=== PATIENT | female | born 1955 | race Caucasian/White ===

== ENCOUNTER 2019-06-02 17:17 | Outpatient (CLI) | payer OTHER, MEDICAID | END 2019-06-02 17:18 | disposition critical access hospital (66) | LOC: EMS 17:17 → MERGE 17:17 → EMS 17:18 | PROVIDERS: ATTEND Surgery | DX: M54.5 Low back pain (principal) | CPT/HCPCS: A0425; A0429; A0999 ==

== ENCOUNTER 2019-06-02 17:34 | Emergency (ER) | payer MEDICAID, OTHER ==
[2019-06-02] MEDS ORDERED: MELOXICAM 7.5 MG TABLET PO STA (18:09)
--- NOTE | 2019-06-02 18:12 | ED Physician Documentation ---
PD HPI BACK PAIN - Stated complaint Stated Complaint: BACK PAIN - Chief complaint Chief Complaint: Back Pain - History obtained from History obtained from: Patient, EMS - History of Present Illness Timing - onset: How many days ago (2) Timing - duration: Days (2) Timing - details: Gradual onset Pain level max: 8 Pain level now: 8 Location: Lower, Left Quality: Pain, Spasm, Similar to prior episodes Associated symptoms: No: Fever, Weakness, Numbness, Incontinent of urine, Unable to urinate, Hematuria, Incontinent of stool Improves with: Rest Worsened by: Movement Contributing factors: Other (Started after gardening on ) Similar symptoms before: Has not had sx before (Has had low back pain and difficulty with the disks in her back for the last 30 years. Normally sees her chiropractor but he was unavailable. She has not taken anything for pain at home.) Recently seen: Not recently seen Review of Systems Constitutional: denies: Fever, Chills Throat: denies: Sore throat Cardiac: denies: Chest pain / pressure Respiratory: denies: Cough GI: denies: Nausea, Vomiting : denies: Dysuria, Frequency, Hesitancy, Incontinent Skin: denies: Rash Musculoskeletal: denies: Neck pain, Back pain Neurologic: denies: Headache PD PAST MEDICAL HISTORY - Past Medical History Past Medical History: Yes Endocrine/Autoimmune: HyPOthyroidism - Past Surgical History Past Surgical History: Yes /[employer]: section - Present Medications Home Medications: Ambulatory Orders Medication Instructions Recorded Confirmed Cyclobenzaprine [Flexeril] 10 mg PO TID PRN #20 tablet 06/02/19 Ibuprofen [Motrin] 800 mg PO Q8H PRN #30 tablet 06/02/19 Oxycodone HCl/Acetaminophen 1 - 2 each PO Q6H PRN #14 tablet 06/02/19 [Percocet 5-325 mg Tablet] predniSONE [Deltasone] 10 mg PO [id number] #42 tab 06/02/19 - Allergies Allergies/Adverse Reactions: Allergies Allergy/AdvReac Type Severity Reaction Status Date / Time No Known Drug Allergies Allergy Verified 06/02/19 17:39 - Social History Does the pt smoke?: No Smoking Status: Never smoker Does the pt drink ETOH?: No Does the pt have substance abuse?: No - Immunizations Immunizations are current?: No - POLST Patient has POLST: No PD ED PE NORMAL - Vitals Vital signs reviewed: Yes - General General: Alert and oriented X 3, No acute distress, Well developed/nourished - HEENT HEENT: Moist mucous membranes - Neck Neck: Supple, no meningeal sign - Cardiac Cardiac: RRR, Strong equal pulses - Respiratory Respiratory: No respiratory distress, Clear bilaterally - Abdomen Abdomen: Soft, Non tender, Non distended - Back Back: No spinal TTP, Other (no midline TTP, paraspinal spasm B.) - Derm Derm: Warm and dry - Extremities Extremities: No calf tenderness / cord - Neuro Neuro: Alert and oriented X 3, No motor deficit, No sensory deficit, Other (Normal bilateral lower extremity patellar and ankle jerk reflexes. Normal great toe extension bilaterally. no saddle anesthesia) - Psych Psych: Normal mood, Normal affect Results - Vitals Vitals: Vital Signs - 24 hr 06/02/19 06/02/19 06/02/19 17:35 20:10 21:49 Temperature 36.7 C 36.7 C Heart Rate 61 51 L 47 L Respiratory 18 18 16 Rate Blood Pressure 105/66 139/79 H 128/65 O2 Saturation 100 100 100 Oxygen O2 Source Room air - Rads (name of study) Lumbar xray Radiology: Prelim report reviewed, EMP read contemporaneously, See rad report (normal) PD MEDICAL DECISION MAKING - ED course Complexity details: reviewed results, re-evaluated patient, considered differential (No cauda equina, no spinal epidural abscess, no fracture, no aortic dissection or evidence of aneursym rupture), d/w patient ED course: 63-year-old female with back spasm. This been an ongoing issue for the past 30 years intermittently. She initially refused all pain medication. She then acquiesced to an anti-inflammatory. She then agreed to a muscle relaxant and a stronger pain medication. She refused all IV or IM medications. Her movement is improved, though she is still having spasming. She would like to go home at this time. Her family and friends want her admitted to the hospital, but there is no criteria for admission at this time. The patient is able to ambulate with minor assistance. She states that she has been sleeping on the hard floor for the past 30 years because otherwise her back hurts in a normal bed. She states that she is safe at home. Patient counseled regarding signs and symptoms for which I believe and urgent re-evaluation would be necessary. Patient with good understanding of and agreement to plan and is comfortable going home at this time This document was made in part using voice recognition software. While efforts are made to proofread this document, sound alike and grammatical errors may occur. Departure - Departure Disposition: 01 Home, Self Care Clinical Impression: Back muscle spasm Condition: Good Instructions: ED Spasm Back No Trauma, ED Sciatica Follow-Up: Thor Rivers MD [Primary Care Provider] - Within 1 week Prescriptions: Cyclobenzaprine [Flexeril] 10 mg PO TID PRN #20 tablet PRN Reason: Spasms Ibuprofen [Motrin] 800 mg PO Q8H PRN #30 tablet PRN Reason: PAIN &/OR FEVER Oxycodone HCl/Acetaminophen [Percocet 5-325 mg Tablet] 1 - 2 each PO Q6H PRN #14 tablet PRN Reason: pain predniSONE [Deltasone] 10 mg PO [id number] #42 tab Comments: Use of medications as prescribed. Return if you worsen. Follow-up with your doctor for further care. Continue gentle stretching at home. Heating pads will help as well. Do not drink alcohol or drive while on narcotic pain medicine. Note that many narcotic pain relievers also contain tylenol/acetaminophen. Please ensure that your total dose of acetaminophen from all sources does not exceed 3 grams (3000mg) per day. You may constipated on this medication, take a stool softener such as "Colace" twice a day while you are on it. Also recommend a [id number]-[id number] laxative such as senna or MiraLAX any day that you do not have a bowel movement. If you received narcotic pain medication in the emergency department, do not drive or operate machinery for the next 24 hours. Discharge Date/Time: 06/02/19 22:20
--- NOTE | 2019-06-02 18:49 | XRAY Report ---
Reason: back pain Procedure Date: 06/02/2019 Accession Number: [id number] / [id number] Procedure: XR - Lumbar Spine 2 View CPT Code: FULL RESULT: EXAM: LUMBOSACRAL SPINE RADIOGRAPHY EXAM DATE: 06/02/2019 06:33 PM. CLINICAL HISTORY: Back pain. COMPARISONS: None. TECHNIQUE: 3 views. FINDINGS: Alignment: Normal. No spondylolisthesis or scoliosis. Bones: Five [id number] lumbar vertebral bodies are present. No fractures or bone lesions. Disks: Moderate disk height loss with disk osteophytes at L5-S1. Mild disk height loss at L4-L5. Facets: Moderate to severe degenerative facet hypertrophy at L5-S1. Moderate facet hypertrophy at L4-L5 and L3-L4. Sacroiliac Joints: Unremarkable. Soft Tissues: Normal. The visualized bowel gas pattern is normal. IMPRESSION: 1. Normal alignment without evidence for acute fractures of the lumbar spine. 2. Multilevel degenerative changes notably in the lower lumbar spine as described above. [facility]
[2019-06-02] MEDS ORDERED: CYCLOBENZAPRINE 10 MG TABLET PO STA (19:54)
[2019-06-02] MEDS ORDERED: CHERRY SYRUP 10 ML UDC PO ONE (19:54)
[2019-06-02] MEDS ORDERED: DEXAMETHASONE 10 MG/ML VIAL PO STA (19:54)
[2019-06-02] MEDS ORDERED: oxyCODONE 5 MG TABLET PO STA (21:08)
[2019-06-02] MEDS ORDERED: oxyCODONE/ACET 5/325 Prepack 4 PO STA (21:39)
[2019-06-02 21:50] VITALS: BP 128/65
[2019-06-02] MEDS ORDERED: diazePAM 5 MG TABLET PO STA (22:03)
== END 2019-06-02 22:20 | disposition home or self-care (01) ==
LOC: MERGE 17:34 → ED 17:34
DX: M62.830 Muscle spasm of back (principal); M51.36 Other intervertebral disc degeneration, lumbar region; M25.78 Osteophyte, vertebrae
CPT/HCPCS: 72100; 99284; A9270